=== PATIENT | male | born 1970 | race Caucasian/White ===

== ENCOUNTER → 2020-11-03 | Outpatient (CLI) | payer BC ==
[~2020-11-03] VITALS: Ht 175.3 cm; Wt 88.5 kg
[~2020-11-03] MED LIST: COZAAR100 MG PO; HCTZ 25MG TAB25 MG PO; WELLBUTRIN SR150 M1 PO
[2020-11-03 09:17] VITALS: BP 128/83; PULSE 80
[2020-11-03 10:00] VITALS: BP 130/94; PULSE 83
== END ==
LOC: COL.RAD 10-24 13:30
DX: E04.1 Nontoxic single thyroid nodule (principal)

== ENCOUNTER → 2022-03-19 | Outpatient (CLI) | payer BC | LOC: MHCPAIN 15:45 | DX: M51.26 Other intervertebral disc displacement, lumbar region (principal); M54.50 Low back pain, unspecified; M53.3 Sacrococcygeal disorders, not elsewhere classified | CPT/HCPCS: G0463 ==